=== PATIENT | female | born 1995 ===

== ENCOUNTER 2019-09-24 16:04 | Emergency (ER) | payer SELFPAY ==
[2019-09-24 17:11] LABS: HIV (1/2) Antibody/Antigen Non-Reactive (NonReactive); HIV 1/2 INDEX 0.13 S/CO (<1.00); Hep C IgG Ab Non-Reactive (NonReactive); Hep C Index 0.31 S/CO (0-0.79)
[2019-09-24 17:12] LABS: HBSAB Concentration 919.28 mIU/mL; Hep B Surf AB Reactive (NonReactive)
== END 2019-09-24 16:24 | disposition home or self-care (01) ==
LOC: ERS 16:04
DX: S50.812A Abrasion of left forearm, initial encounter (principal); E03.9 Hypothyroidism, unspecified; Z79.899 Other long term (current) drug therapy; W50.4XXA Accidental scratch by another person, initial encounter
CPT/HCPCS: 36415; 86706; 86803; 87389; 99283